=== PATIENT | female | born 1990 | race Caucasian/White ===

== ENCOUNTER 2017-10-02 13:53 | Emergency (ER) | payer OTHER ==
[2017-10-02] MEDS ORDERED: Bupivacaine 0.5% 10 ML VIAL ONE (14:07)
== END 2017-10-02 14:24 | disposition home or self-care (01) ==
LOC: SCSER 13:53
DX: K02.9 Dental caries, unspecified (principal); K03.81 Cracked tooth
CPT/HCPCS: 99282; J3490

== ENCOUNTER 2018-06-05 15:08 | Emergency (ER) | payer OTHER ==
[2018-06-05 15:45] LABS: #Eosinphils 0.1 thou/uL (0.0-0.7); #Lymphocytes 2.1 thou/uL (1.20-3.40); #Monocytes 0.5 thou/uL (0.11-0.59); #Neutrophils 7.1 thou/uL (1.40-6.50); %Basophils 0.2 % (0.0-1.0); %Eosinophils 1.4 % (0.0-10.0); %Lymphocytes 21.5 % (21.0-51.0); %Monocytes 4.8 % (0.0-10.0); %Neutrophils 72.1 % (42.0-75.0); Hemoglobin 12.4 g/dL (12.0-16.0); Mean Corpuscular Hemoglobin 29.4 pg (27.0-31.0); Mean Corpuscular Volume 86.6 fL (78.0-98.0); Mean Platelet Volume 6.7 fL (7.4-10.4); Platelet Count 322 thou/uL (130-400); RBC Distribution Width 11.1 % (11.5-14.5); Red Blood Cell (RBC) Count 4.22 mill/uL (4.20-5.40); White Blood Cell (WBC) Count 9.9 thou/uL (4.8-10.8)
--- NOTE | 2018-06-05 16:45 | ULT ---
PELVIC ULTRASOUND: 06/05/18 Transabdominal ultrasound of the pelvis performed. INDICATIONS: Question . Pelvic pain. FINDINGS: There appears to be a single viable intrauterine gestation. Gestational sac is identified. Yolk sac a nd pole are identified. The crown-rump length indicates a 7 week, 5 day gestational age. heart rate is recorded at 149 beats per minute. No abnormality identified. Maternal ovaries are ident ified and appear unremarkable. Color doppler and spectral analysis demonstrates blood flow to both ma ternal ovaries. IMPRESSION: A single viable intrauterine with crown-rump length indicating a 7 week, 5 day gestational age. POS: [facility]
== END 2018-06-05 17:59 | disposition home or self-care (01) ==
LOC: ERS 15:08
DX: O20.9 Hemorrhage in early pregnancy, unspecified (principal); O99.331 Smoking (tobacco) complicating pregnancy, first trimester; F17.210 Nicotine dependence, cigarettes, uncomplicated; Z3A.10 10 weeks gestation of pregnancy
CPT/HCPCS: 36415; 76856; 84702; 85025; 86850; 86900; 86901; 93976

== ENCOUNTER 2019-01-06 05:28 | Inpatient (IN) | payer OTHER ==
[2019-01-06 06:16] VITALS: BMI 32.3
[2019-01-06] MEDS ORDERED: Promethazine HCl 25 MG/ML VIAL IM PRN ×2 (06:25→09:30)
[2019-01-06] MEDS ORDERED: Azithromycin 500 MG in Sodium Chloride 0.9% 250 ML 250 ML IVPB SCH (06:25)
[2019-01-06] MEDS ORDERED: Lactated Ringer's 1,000 ML IV SCH (06:25)
[2019-01-06] MEDS ORDERED: Bicitra 30 ML UDCUP PO SCH (06:25)
[2019-01-06] MEDS ORDERED: hydrALAZINE 20 MG/ML VIAL SLOW IVP PRN ×2 (06:25→12:11)
[2019-01-06] MEDS ORDERED: CEFAZOLIN 2 GM in Premix Bag 1 BAG IVPB SCH (06:25)
[2019-01-06] MEDS ORDERED: Ondansetron PF 4 MG/2 ML Vial IVP PRN ×2 (06:25→12:11)
[2019-01-06 06:55] LABS: Mean Corpuscular HGB CONC 33.9 g/dL (32.0-36.0); Mean Corpuscular Hemoglobin 29.9 pg (27.0-31.0); Mean Platelet Volume 7.4 fL (7.4-10.4); Platelet Count 252 thou/uL (130-400); RBC Distribution Width 12.3 % (11.5-14.5); Red Blood Cell (RBC) Count 4.01 mill/uL (4.20-5.40); White Blood Cell (WBC) Count 9.2 thou/uL (4.8-10.8)
[2019-01-06 07:26] LABS: Amphetamine Not Detected (NotDetected); Barbiturates Screen Not Detected (NotDetected); Benzodiazepine Screen Not Detected (NotDetected); Cocaine Metabolite Screen Not Detected (NotDetected); Medtox Control Line Valid? VALID (VALID); Medtox Reader # READER 4; Methadone Not Detected (NotDetected); Methamphetamine Not Detected (NotDetected); Opiate Screen Not Detected (NotDetected); Oxycodone Screen Not Detected (NotDetected); Phencyclidine (PCP) Not Detected (NotDetected); THC/Cannabinoid Screen Not Detected (NotDetected); Tricyclic Screen Not Detected (NotDetected)
[2019-01-06] MEDS ORDERED: Oxytocin 10 UNITS/ML VIAL ONE ×2 (07:29→08:42)
[2019-01-06] MEDS ORDERED: MORPHINE 5 MG/10 ML PF VIAL ONE (07:29)
[2019-01-06 07:35] LABS: Syphilis Antibody Nonreactive (Nonreactive); Syphilis Antibody Index 0.06 S/CO (<1.00 Non-Reactive)
[2019-01-06 07:36] LABS: HBSAg Index 0.41 S/CO (0-0.99); Hep B Surf Ag Non-Reactive S/CO (NonReactive)
[2019-01-06] MEDS ORDERED: PHENYLEPHRINE-NS 100 MCG/ML 10 ML SYRINGE ONE ×2 (08:21→12:08)
[2019-01-06] MEDS ORDERED: Ketorolac Tromethamine 30 MG/ML VIAL IVP SCH (09:30)
[2019-01-06] MEDS ORDERED: Ketorolac Tromethamine 30 MG/ML VIAL IVP PRN (09:30)
[2019-01-06] MEDS ORDERED: Communication Order-Pharmacy FS SCH (09:30)
[2019-01-06] MEDS ORDERED: Promethazine HCl 25 MG SUPP PR PRN (09:30)
[2019-01-06] MEDS ORDERED: diphenhydrAMINE 50 MG/ML VIAL IVP PRN (09:30)
[2019-01-06] MEDS ORDERED: Naloxone HCl 0.4 mg/ml Vial IV PRN (09:30)
[2019-01-06] MEDS ORDERED: HYDROmorphone 2 MG/ML VIAL SLOW IVP PRN (09:30)
[2019-01-06] MEDS ORDERED: L&D-Morphine 4 MG/ML VIAL SLOW IVP PRN (09:30)
[2019-01-06] MEDS ORDERED: Naloxone HCl 0.4 mg/ml Vial IVP PRN ×2 (09:30)
[2019-01-06] MEDS ORDERED: Ondansetron HCl/PF 4 MG/2 ML Vial IVP PRN (09:30)
[2019-01-06] MEDS ORDERED: Meperidine HCl/PF 25 MG/ML VIAL SLOW IVP PRN (09:30)
[2019-01-06] MEDS ORDERED: Ketorolac Tromethamine 30 MG/ML VIAL ONE (10:45)
[2019-01-06] MEDS ORDERED: Meperidine HCl/PF 25 MG/ML VIAL IM PRN (12:11)
[2019-01-06] MEDS ORDERED: Adacel (T-DAP) 0.5 ML SYRINGE IM ONE (12:11)
[2019-01-06] MEDS ORDERED: NS / Oxytocin 40 units/1000ml 1,000 ML IV SCH (12:11)
[2019-01-06] MEDS ORDERED: Lanolin Ointment 7 GM TUBE TOP PRN (12:11)
[2019-01-06] MEDS ORDERED: Bisacodyl 10 MG SUPP PR PRN (12:11)
[2019-01-06] MEDS: Ketorolac Tromethamine 30 MG/ML VIAL IVP SCH ×2 (16:21→21:33)
[2019-01-06] MEDS: Ondansetron PF 4 MG/2 ML Vial IVP PRN (16:24)
[2019-01-06] MEDS: Simethicone Chewable 80 MG TAB PO PRN (20:53)
[2019-01-06] MEDS: diphenhydrAMINE 25 MG CAP PO PRN (20:53)
[2019-01-06] MEDS: Docusate Calcium (SURFAK) 240 MG CAP PO SCH (20:53)
[2019-01-06] MEDS ORDERED: FLU VACC QS2019-20(6MOS UP)/PF 60 MCG/0.5 ML SYRINGE IM ONE (21:00)
[2019-01-06] MEDS ORDERED: HYDROcodone/Acetaminophen 5/325 mg Tablet PO PRN (21:30)
[2019-01-06] MEDS: Ferrous Sulfate 325 MG TAB PO SCH (23:52)
[2019-01-07] MEDS: HYDROcodone/Acetaminophen 5/325 mg Tablet PO PRN ×6 (01:51→21:34)
[2019-01-07] MEDS: Ondansetron PF 4 MG/2 ML Vial IVP PRN (01:51)
[2019-01-07] MEDS: Ketorolac Tromethamine 30 MG/ML VIAL IVP SCH (05:25)
[2019-01-07 06:01] LABS: Hemoglobin 11.3 g/dL (12.0-16.0); Mean Corpuscular Hemoglobin 30.2 pg (27.0-31.0); Mean Corpuscular Volume 88.6 fL (78.0-98.0); Mean Platelet Volume 7.2 fL (7.4-10.4); Platelet Count 210 thou/uL (130-400); RBC Distribution Width 12.2 % (11.5-14.5); Red Blood Cell (RBC) Count 3.73 mill/uL (4.20-5.40); White Blood Cell (WBC) Count 10.6 thou/uL (4.8-10.8)
[2019-01-07] MEDS: Prenatal Vitamin 1 TAB PO SCH (09:14)
[2019-01-07] MEDS: Docusate Calcium (SURFAK) 240 MG CAP PO SCH ×2 (09:14→21:33)
[2019-01-07] MEDS: Ferrous Sulfate 325 MG TAB PO SCH ×2 (09:17→23:06)
[2019-01-07] MEDS: Ibuprofen 800 MG TAB PO SCH ×2 (13:24→21:33)
[2019-01-07] MEDS ORDERED: Hydrocerin (Eucerin) Cream 120 gm Jar TOP PRN (21:32)
[2019-01-07] MEDS: Simethicone Chewable 80 MG TAB PO PRN (21:33)
[2019-01-08] MEDS: HYDROcodone/Acetaminophen 5/325 mg Tablet PO PRN ×5 (02:23→21:32)
[2019-01-08] MEDS: Ibuprofen 800 MG TAB PO SCH ×3 (05:21→21:33)
[2019-01-08] MEDS: Simethicone Chewable 80 MG TAB PO PRN ×2 (05:22→16:52)
[2019-01-08] MEDS: Ferrous Sulfate 325 MG TAB PO SCH ×2 (07:28→19:35)
[2019-01-08] MEDS: Prenatal Vitamin 1 TAB PO SCH (08:30)
[2019-01-08] MEDS: Docusate Calcium (SURFAK) 240 MG CAP PO SCH ×2 (08:30→21:33)
[2019-01-08] MEDS ORDERED: Famotidine 20 MG TAB PO SCH (10:00)
[2019-01-08] MEDS: Famotidine 20 MG TAB PO SCH (21:33)
[2019-01-08] MEDS: diphenhydrAMINE 25 MG CAP PO PRN (21:39)
[2019-01-09] MEDS: Ibuprofen 800 MG TAB PO SCH ×3 (06:02→21:14)
[2019-01-09] MEDS: Prenatal Vitamin 1 TAB PO SCH (08:19)
[2019-01-09] MEDS: Docusate Calcium (SURFAK) 240 MG CAP PO SCH ×2 (08:19→21:14)
[2019-01-09] MEDS: Famotidine 20 MG TAB PO SCH ×2 (08:19→21:14)
[2019-01-09] MEDS: HYDROcodone/Acetaminophen 5/325 mg Tablet PO PRN ×4 (08:19→21:24)
[2019-01-09] MEDS: Ferrous Sulfate 325 MG TAB PO SCH ×2 (08:35→21:14)
[2019-01-10] MEDS: HYDROcodone/Acetaminophen 5/325 mg Tablet PO PRN ×3 (02:20→11:01)
[2019-01-10] MEDS: Ibuprofen 800 MG TAB PO SCH (05:09)
[2019-01-10 07:47] VITALS: BP 125/80; TEMP 98.4
[2019-01-10] MEDS: Docusate Calcium (SURFAK) 240 MG CAP PO SCH (08:23)
[2019-01-10] MEDS: Famotidine 20 MG TAB PO SCH (08:23)
[2019-01-10] MEDS: Prenatal Vitamin 1 TAB PO SCH (08:23)
[2019-01-10] MEDS: Ferrous Sulfate 325 MG TAB PO SCH (09:55)
--- NOTE | 2019-01-12 13:12 | OP ---
DATE OF PROCEDURE: 01/06/2019 PREOPERATIVE DIAGNOSES: 1. 39 weeks . 2. Gestational diabetes mellitus, diet controlled. 3. Previous shoulder dystocia with clavicle fracture. POSTOPERATIVE DIAGNOSES: 1. 39 weeks . 2. Gestational diabetes mellitus, diet controlled. 3. Previous shoulder dystocia with clavicle fracture. PROCEDURE PERFORMED: Primary low cervical transverse . ANESTHESIA: Spinal. DESCRIPTION OF PROCEDURE: After informed consent were obtained from the patient, she was taken to the operating room where spinal anesthesia was administered. She was prepped and draped in the usual sterile fashion. A Pfannenstiel incision was created with a #10 scalpel blade and carried down to the fascia. The fascia was nicked in the midline. The fascial incision was extended transversely with Lea scissors. The superior fascial segment was grasped with Flory's and elevated. The underlying rectus muscles were dissected away first bluntly and then sharply with Lea scissors. This was repeated with the inferior fascial segment. Rectus muscles were divided in the midline bluntly and the peritoneum was entered bluntly. Bladder blade was inserted. The uterus was entered in a low-transverse fashion with a clean #10 scalpel blade. The hysterotomy was extended superolaterally with blunt dissection. Membranes were ruptured with an Allis. Clear amniotic fluid was encountered. The vertex was delivered on to the operative field with fundal pressure and vacuum assistance, 2 pulls, 1 pop-off, max pressure 42 mmHg. Remainder of the delivered uneventfully. The oropharynx and nares were bulb suctioned. Cord was clamped x2 and cut and a vigorous male was handed to the staff in attendance. Cord blood was obtained and the placenta was expressed. The uterus was exteriorized and freed of clots and debris. The uterus was repaired with a running locking suture of #1 Monocryl in a single full-thickness layer followed by a second imbricating layer also of #1 Monocryl. The abdomen was copiously irrigated with saline. Seprafilm was applied to the repaired uterine incision on the anterior uterine fundus. The uterus was returned to the abdomen. Hemostasis was again observed. The peritoneum was closed with a running suture of 3-0 Vicryl. The fascia was closed with a running suture of 0 PDS. Three interrupted sutures of 3-0 Vicryl were placed in the subdermal layer to reapproximate the skin, which was closed with skin jordi. Sponge and instrument counts were correct x4. She tolerated the procedure well and suffered no acute complications. She was taken to recovery in stable condition and the infant to the nursery in stable condition. Job ID: [id number]
== END 2019-01-10 12:45 | disposition home or self-care (01) | DRG 788 ==
LOC: L&D 05:28 → 3SW 12:12
PROVIDERS: ADMIT Family Medicine; ATTEND Family Medicine
PROC: 10D00Z1 Extraction of Products of Conception, Low, Open Approach (ICD-10-PCS; principal; 2019-01-06)
DX: O34.211 Maternal care for low transverse scar from previous cesarean delivery (principal); Z3A.39 39 weeks gestation of pregnancy; Z37.0 Single live birth; O24.420 Gestational diabetes mellitus in childbirth, diet controlled; Z28.21 Immunization not carried out because of patient refusal; Z91.040 Latex allergy status; Z91.013 Allergy to seafood
CPT/HCPCS: 36415; 51702; 80306; 85027; 86780; 86850; 86900; 86901; 87340; J0690; J1885; J2274; J2405; J2590; Q0163

== ENCOUNTER 2019-12-05 13:28 | Day surgery (SDC) | payer OTHER ==
[2019-12-05] MEDS ORDERED: Betamet Acet/Betamet Na Ph 30 MG/5 ML VIAL ONE (13:36)
== END 2019-12-05 13:45 | disposition home or self-care (01) ==
LOC: L&D/OP 13:28
PROVIDERS: ATTEND Obstetrics & Gynecology
DX: Z29.8 Encounter for other specified prophylactic measures (principal); Z88.5 Allergy status to narcotic agent; Z91.013 Allergy to seafood; Z91.040 Latex allergy status; Z91.048 Other nonmedicinal substance allergy status
CPT/HCPCS: 96372; 99281; J0702

== ENCOUNTER 2019-12-06 13:46 | Day surgery (SDC) | payer OTHER ==
[2019-12-06] MEDS ORDERED: Betamet Acet/Betamet Na Ph 30 MG/5 ML VIAL IM SCH (14:00)
[2019-12-06] MEDS ORDERED: hydrALAZINE 20 MG/ML VIAL SLOW IVP PRN (14:00)
[2019-12-06 14:19] VITALS: BP 131/79; TEMP 98.3
[2019-12-06 14:54] VITALS: BMI 39.9
[2019-12-06] MEDS ORDERED: Fioricet 325/50/40 mg Tablet PO SCH (15:15)
[2019-12-06 17:56] LABS: Creatinine, Urine 220.07 mg/dL (47-110)
--- NOTE | 2019-12-06 20:08 | PRG ---
DATE OF SERVICE: 12/06/2019 PRIMARY OB: Dr. Williams Castillo. CHIEF COMPLAINT: Mild preeclampsia with headache and blurry vision. HISTORY OF PRESENT ILLNESS: The patient is a 29-year-old, G13, P4 female with an intrauterine at 31 weeks and 4 days, presenting to Labor and Delivery today for a scheduled betamethasone shot #2 in a series of 2. The patient was sent yesterday by her primary OB with a new diagnosis of mild preeclampsia, being sent to get steroids. Today, when she presented for her second shot, the patient reports she has been having persistent headache and blurry vision and the patient was kept for evaluation. She denies abdominal pain or shortness of breath. She states that her vision has been blurry for several weeks now and that her headache has also been off and on. The patient denies fever. She denies cough, chest pain, shortness of breath, nausea, vomiting, diarrhea, constipation, any new rashes, hip problems, knee problems, or muscle weakness. Denies vaginal bleeding, leakage of fluid, urinary urgency or frequency. PAST MEDICAL HISTORY: Kidney stones. PAST SURGICAL HISTORY: section and lithotripsy for kidney stones. SOCIAL HISTORY: The patient denies alcohol or drug use. She smokes about half pack per day. ALLERGIES: NO KNOWN DRUG ALLERGIES. MEDICATIONS: 1. Albuterol. 2. vitamins. 3. Iron. OB LABS: Blood type is B positive. Antibody screen is negative. VDRL is nonreactive in the first trimester. HIV nonreactive in the first trimester. GC chlamydia negative in the first trimester. She is rubella immune. Diabetes screen is 160. 3-hour test is unavailable. REVIEW OF SYSTEMS: Per HPI. PHYSICAL EXAMINATION: VITAL SIGNS: Initial blood pressure was 131/79, heart rate of 108, respiratory rate of 18, and temperature 98.3. Over the course of 3 hours, blood pressures have remained normal, 120s to 130s over 60s to 70s and heart rate has been in the 90s. GENERAL: She appears to be in no acute distress. She is alert, oriented, cooperative, and pleasant to interact with. HEAD: Normocephalic and atraumatic. LUNGS: Clear to auscultation bilaterally. HEART: Has a regular rate and rhythm. ABDOMEN: Gravid, soft, nontender. EXTREMITIES: Nontender. She has 1+ DTRs. DIAGNOSTIC DATA: heart tracing shows the fetus with a baseline in the 140s with moderate long-term variability and positive 15 x 15 accelerations. Tocometer is showing some irritability, not felt by the patient. Urine protein to creatinine ratio is 0.08 mg/dL. ASSESSMENT AND PLAN: The patient is a 29-year-old, G13, P4 female with an intrauterine at 31 weeks and 4 days, presenting with a diagnosis of mild preeclampsia, headache, and blurry vision. Evaluation here shows completely normal blood pressures, off medication for a course of 3 hours. Fioricet was given, greatly improving her headache. No proteinuria on lab findings. The patient is being discharged home. She has instructions to follow up with her primary OB as scheduled and was given the shot per Dr. Castillo's instructions, her second dose of betamethasone. Fetus has a category I tracing and reactive NST. Job ID: [id number]
== END 2019-12-06 18:25 | disposition home or self-care (01) ==
LOC: L&D/OP 13:46
PROVIDERS: ATTEND Obstetrics & Gynecology
DX: O14.03 Mild to moderate pre-eclampsia, third trimester (principal); O99.333 Smoking (tobacco) complicating pregnancy, third trimester; F17.210 Nicotine dependence, cigarettes, uncomplicated; O34.219 Maternal care for unspecified type scar from previous cesarean delivery; Z3A.31 31 weeks gestation of pregnancy; Z79.899 Other long term (current) drug therapy; Z88.5 Allergy status to narcotic agent; Z91.013 Allergy to seafood; Z91.040 Latex allergy status; Z91.048 Other nonmedicinal substance allergy status
CPT/HCPCS: 82570; 84156; 96372; 99283

== ENCOUNTER 2020-01-17 08:35 | Outpatient (CLI) | payer OTHER ==
[2020-01-17 23:35] LABS: SARS-CoV-2 MS2 Positive; SARS-CoV-2 N Gene Negative; SARS-CoV-2 S Gene Negative; SARS-CoV-2 by NAA Not Detected (NotDetected); SARS-CoV-2 orf1ab Negative
== END 2020-01-17 08:36 | disposition home or self-care (01) ==
LOC: LABBT 08:35
PROVIDERS: ATTEND Obstetrics & Gynecology
DX: Z01.812 Encounter for preprocedural laboratory examination (principal); Z20.828 Contact with and (suspected) exposure to other viral communicable diseases
CPT/HCPCS: 87635; U0003